=== PATIENT | male | born 1980 | race Caucasian/White ===

== ENCOUNTER 2017-01-01 14:30 | Emergency (ER) | payer OTHER, BC ==
[2017-01-01 14:50] LABS: EOSINOPHIL (%) 1.3 % (0-5); EOSINOPHIL COUNT 0.1 K/uL (0-0.3); HEMATOCRIT 43.4 % (38.0-50.0); IMMATURE GRANULOCYTE (%) 0.5 % (0.0-0.7); INSTRUMENT ABS NEUTROPHIL CT 5.4 K/uL; LYMPHOCYTE COUNT 2.5 K/uL (1.0-2.8); MCH 29.6 PG (29.0-34.0); MCHC 34.6 G/DL (30.0-36.0); MCV 85.6 FL (86-99); MEAN PLAT.VOLUME 9.9 uM^3 (9.0-12.4); MONOCYTE (%) 7.7 % (3-12); MONOCYTE COUNT 0.7 K/uL (0-0.8); NEUTROPHIL (%) 61.8 % (45-76); NEUTROPHIL COUNT 5.4 K/uL (1.8-6.4); PLATELET COUNT 218 K/uL (156-360); RBC DIS.WIDTH-CV 11.5 % (11.8-14.6); RBC DIS.WIDTH-SD 35.7 % (39-53); RED BLOOD COUNT 5.07 M/uL (4.00-5.50); WHITE BLOOD COUNT 8.7 K/uL (4.1-10.2)
[2017-01-01 15:00] LABS: AMYLASE 142 IU/L (1-118); CHLORIDE 107 mEq/L (99-109); POTASSIUM 3.9 mEq/L (3.7-5.4); SODIUM 140 mEq/L (136-147)
[2017-01-01 15:02] LABS: GLUCOSE 103 mg/dL (70-99)
[2017-01-01 15:03] LABS: ANION GAP 9 MEQ/L (2-14)
[2017-01-01 15:05] LABS: SERUM ETHYL ALCOHOL < 10 mg/dL
[2017-01-01 15:07] LABS: UREA NITROGEN (BUN) 16 mg/dL (9-23)
[2017-01-01 15:09] LABS: LIPASE 40 U/L (1.0-51.0)
[2017-01-01 15:11] LABS: GFR ESTIMATE (CALCULATED) > 59 mL/min/
[2017-01-01] MEDS ORDERED: FLEXERIL10 MG PO (17:24)
== END 2017-01-01 18:00 | disposition home or self-care (01) ==
LOC: TRA 14:30
PROVIDERS: Emergency Medicine
PROC: 3E0234Z Introduction of Serum, Toxoid and Vaccine into Muscle, Percutaneous Approach (ICD-10-PCS; principal; 2017-01-01)
DX: S20.219A Contusion of unspecified front wall of thorax, initial encounter (principal); S30.1XXA Contusion of abdominal wall, initial encounter; S10.93XA Contusion of unspecified part of neck, initial encounter; V44.5XXA Car driver injured in collision with heavy transport vehicle or bus in traffic accident, initial encounter; Z23 Encounter for immunization
CPT/HCPCS: 70450; 71250; 72125; 72128; 72131; 74176; 80048; 81003; 82150; 83690; 85025; 86850; 86900; 86901; 99281; 99285; G0480; J2270; J2405

== ENCOUNTER 2017-03-06 16:39 | Emergency (ER) | payer BC ==
[~2017-03-06] VITALS: Ht 182.9 cm; Wt 92.0 kg
[~2017-03-06 16:39] MED LIST: FLEXERIL10 MG PO
[2017-03-06 17:13] LABS: HEMATOCRIT 43.3 % (38.0-50.0); MCH 29.4 PG (29.0-34.0); MCHC 34.6 G/DL (30.0-36.0); MCV 84.7 FL (86-99); MEAN PLAT.VOLUME 9.9 uM^3 (9.0-12.4); PLATELET COUNT 207 K/uL (156-360); RBC DIS.WIDTH-CV 11.1 % (11.8-14.6); RBC DIS.WIDTH-SD 34.4 % (39-53); RED BLOOD COUNT 5.11 M/uL (4.00-5.50); WHITE BLOOD COUNT 5.9 K/uL (4.1-10.2)
[2017-03-06 17:22] LABS: CHLORIDE 106 mEq/L (99-109); POTASSIUM 3.7 mEq/L (3.7-5.4); SODIUM 139 mEq/L (136-147)
[2017-03-06 17:24] LABS: GLUCOSE 101 mg/dL (70-99)
[2017-03-06 17:25] LABS: ANION GAP 10 MEQ/L (2-14)
[2017-03-06 17:28] LABS: GFR ESTIMATE (CALCULATED) > 59 mL/min/
[2017-03-06 17:29] LABS: UREA NITROGEN (BUN) 13 mg/dL (9-23)
[2017-03-06 17:33] LABS: TROP-I INTERPRETATION NEGATIVE; TROPONIN-I < 0.01 ng/mL (0.0-0.30)
[2017-03-06 19:08] LABS: TROP-I INTERPRETATION NEGATIVE; TROPONIN-I < 0.01 ng/mL (0.0-0.30)
[2017-03-06 20:13] VITALS: BP 129/69
== END 2017-03-06 20:15 | disposition home or self-care (01) ==
LOC: EME 16:39
PROVIDERS: Emergency Medicine
DX: R07.89 Other chest pain (principal); Z91.018 Allergy to other foods; Z88.1 Allergy status to other antibiotic agents; Z88.8 Allergy status to other drugs, medicaments and biological substances; Z82.49 Family history of ischemic heart disease and other diseases of the circulatory system
CPT/HCPCS: 71020; 80048; 84484; 85027; 93005; 99281; 99284